=== PATIENT | male | born 1940 | race Caucasian/White ===

== ENCOUNTER 2016-08-03 17:27 | Emergency (ER) | payer MEDICARE | END 2016-08-03 23:01 | disposition home or self-care (01) | LOC: ER 17:27 | DX: K81.2 Acute cholecystitis with chronic cholecystitis (principal); Z90.89 Acquired absence of other organs; Z79.899 Other long term (current) drug therapy; Z79.82 Long term (current) use of aspirin | CPT/HCPCS: 36415; 96361; 96374; 96375; 96376; Q9967 ==

== ENCOUNTER 2016-08-05 10:39 | Observation (INO) | payer MEDICARE ==
[2016-08-06] MEDS ORDERED: OXYCODONE HCL30 MG PO (13:29)
[2016-08-06] MEDS ORDERED: LOPRESSOR50 MG PO (13:30)
[2016-08-06] MEDS ORDERED: LASIX40 MG PO (13:30)
[2016-08-06] MEDS ORDERED: FLOMAX0.4 MG PO (13:31)
[2016-08-06] MEDS ORDERED: OMEPRAZOLE20 MG PO (13:31)
[2016-08-06] MEDS ORDERED: ALDACTONE25 MG PO (13:31)
[2016-08-06] MEDS ORDERED: ZOCOR20 MG PO (13:31)
[2016-08-06] MEDS ORDERED: VALIUM5 MG PO (13:32)
[2016-08-06] MEDS ORDERED: FLUTICASONE PRO16 GM NS (13:32)
[2016-08-06] MEDS ORDERED: FLECAINIDE ACE100 MG PO (13:32)
[2016-08-06] MEDS ORDERED: LACTULOSE10 GM/15 M PO (13:33)
== END 2016-08-06 12:40 | disposition home or self-care (01) ==
LOC: SDC 10:39 → MED 17:31
PROVIDERS: ADMIT Surgery
DX: K80.00 Calculus of gallbladder with acute cholecystitis without obstruction (principal); I11.0 Hypertensive heart disease with heart failure; I50.9 Heart failure, unspecified; N40.0 Benign prostatic hyperplasia without lower urinary tract symptoms; G43.909 Migraine, unspecified, not intractable, without status migrainosus; M19.90 Unspecified osteoarthritis, unspecified site; F41.9 Anxiety disorder, unspecified; Z90.49 Acquired absence of other specified parts of digestive tract; Z95.0 Presence of cardiac pacemaker; Z98.890 Other specified postprocedural states
CPT/HCPCS: C1894; G0378; J1885; J2704; Q9967